=== PATIENT | male | born 1980 | race Caucasian/White ===

== ENCOUNTER 2018-02-21 13:05 | Day surgery (SDC) | payer OTHER ==
[2018-02-18 11:12] VITALS: BMI 35.6
[2018-02-21] MEDS ORDERED: MIDAZOLAM HCL 2 MG/2 ML SINGLE DOSE VIAL ONE ×3 (14:23→14:35)
[2018-02-21] MEDS ORDERED: fentaNYL CITRATE 250 MCG/5 ML VIAL ONE (14:26)
[2018-02-21] MEDS ORDERED: DEXAMETHASONE SOD PHOSPHATE 4 MG/1 ML VIAL ONE (14:36)
--- NOTE | 2018-02-21 15:14 | OP ---
Operative Note - Note: Operative Date: 02/21/18 Pre-Operative Diagnosis: Right renal stone Operation: Right ESWL Findings: 5 mm Right kidney mid pole stone Post-Operative Diagnosis: Same as Pre-op Surgeon: Catracho Hinson Anesthesia: Fractional Estimated Blood Loss (mls): 0
[2018-02-21 15:46] VITALS: BP 106/69; PULSE 72; TEMP 98
--- NOTE | 2018-02-22 08:09 | OP ---
DATE OF OPERATION: 02/21/2018 PREOPERATIVE DIAGNOSIS: Right renal stone. POSTOPERATIVE DIAGNOSIS: Right renal stone. PROCEDURE: Right extracorporeal shock wave lithotripsy. ATTENDING: Catracho Valdes MD ANESTHESIA: Fractional. DESCRIPTION OF OPERATION: The patient was brought in the operating room and placed in supine position on the operating room table. Ultrasonography and fluoroscopy were performed. A right mid-pole stone was identified which measured 5-mm. Anesthesia and preoperative antibiotics were then administered. Shockwave lithotripsy was then performed; 2500 impulses at 17 joules of power were administered to the stone. Excellent fragmentation of the stone was noted under real-time ultrasonography and fluoroscopy. No complications were noted. Malorie [id number]
== END 2018-02-21 16:03 | disposition home or self-care (01) ==
LOC: JASU-SURG 13:05
PROVIDERS: ATTEND Urology
PROC: 0TF3XZZ Fragmentation in Right Kidney Pelvis, External Approach (ICD-10-PCS; principal; 2018-02-21 15:30)
DX: N20.0 Calculus of kidney (principal)

== ENCOUNTER 2018-03-07 07:28 | Day surgery (SDC) | payer OTHER ==
[2018-03-03 13:39] VITALS: BMI 35.9
[2018-03-07] MEDS ORDERED: MIDAZOLAM HCL 2 MG/2 ML SINGLE DOSE VIAL ONE ×2 (09:37→09:43)
[2018-03-07] MEDS ORDERED: LIDOCAINE HCL/PF 2% SDV 5ML VIAL ONE (09:37)
[2018-03-07] MEDS ORDERED: PROPOFOL 20 ML ONE (09:37)
--- NOTE | 2018-03-07 10:02 | OP ---
Operative Note - Note: Operative Date: 03/07/18 Pre-Operative Diagnosis: Left renal stone Operation: Left ESWL Findings: 5mm left kidney mid pole stone Post-Operative Diagnosis: Same as Pre-op Surgeon: 2,[employer] Anesthesia: Fractional Estimated Blood Loss (mls): 0
[2018-03-07 11:15] VITALS: TEMP 97.4
[2018-03-07 11:18] VITALS: BP 122/70; PULSE 73
--- NOTE | 2018-03-07 21:44 | OP ---
DATE OF OPERATION: 03/07/2018 PREOPERATIVE DIAGNOSIS: Left renal stone. POSTOPERATIVE DIAGNOSIS: Left renal stone. PROCEDURE: Left extracorporeal shock wave lithotripsy. ATTENDING: Fuentes Sharma MD ANESTHESIA: Fractional. DESCRIPTION OF OPERATION: The patient was brought in the operating room and placed in supine position on the operating room table. Ultrasonography and fluoroscopy were performed. A 5-mm left mid-pole stone was identified. At this point, anesthesia and preoperative antibiotics were administered. Shock wave lithotripsy was then performed; 2500 impulses at 17 joules of power were administered to the stone with excellent fragmentation under real-time ultrasonography and fluoroscopy. No complications were noted. The patient tolerated the procedure very well. FUENTES SHARMA M.D. [id number]
== END 2018-03-07 11:10 | disposition home or self-care (01) ==
LOC: JASU-SURG 07:28
PROVIDERS: ATTEND Urology
PROC: 0TF4XZZ Fragmentation in Left Kidney Pelvis, External Approach (ICD-10-PCS; principal; 2018-03-07 18:30)
DX: N20.0 Calculus of kidney (principal)

== ENCOUNTER 2021-10-11 09:39 | Emergency (ER) | payer BC, OTHER ==
[2021-10-11 09:52] VITALS: BP 131/89; PULSE 108; TEMP 98.1; BMI 34.7
[2021-10-11] MEDS ORDERED: KETOROLAC TROMETHAMINE 30 MG/1 ML VIAL IM ONE (10:16)
== END 2021-10-11 11:40 | disposition home or self-care (01) ==
LOC: JER 09:39
PROC: 3E0233Z Introduction of Anti-inflammatory into Muscle, Percutaneous Approach (ICD-10-PCS; principal; 2021-10-11)
DX: S93.402A Sprain of unspecified ligament of left ankle, initial encounter (principal); X50.0XXA Overexertion from strenuous movement or load, initial encounter
CPT/HCPCS: 93971-TC; 99284-25